=== PATIENT | female | born 1990 | race Caucasian/White ===

== ENCOUNTER 2017-05-24 21:12 | Emergency (ER) | payer OTHER ==
[2017-05-24 23:17] LABS: Basophils # (Auto) 0.1 K/mm3 (0.0-0.1); Basophils % (Auto) 0.3 % (0.0-1.8); Eosinophils # (Auto) 0.1 K/mm3 (0.0-0.4); Eosinophils % (Auto) 0.5 % (0.0-4.3); Hematocrit 41.8 % (30.3-42.9); Hemoglobin 13.4 gm/dl (10.1-14.3); Lymphocytes # (Auto) 2.8 K/mm3 (1.2-5.4); Lymphocytes % (Auto) 14.6 % (13.4-35.0); Mean Corpuscular HGB Conc 32 % (30-34); Mean Corpuscular Hemoglobin 26 pg (28-32); Mean Corpuscular Volume 82 fl (79-97); Monocytes # (Auto) 0.9 K/mm3 (0.0-0.8); Platelet Count 227 K/mm3 (140-440); Red Cell Distribution Width 14.6 % (13.2-15.2)
[2017-05-24 23:37] LABS: Alanine Aminotransferase 17 units/L (7-56); Albumin 3.7 g/dL (3.9-5); BUN/Creatinine Ratio 28; Blood Urea Nitrogen 14 mg/dL (7-17); Calcium 8.9 mg/dL (8.4-10.2); Hemolysis Index 8
[2017-05-24 23:52] LABS: Amorphous Crystals,Urine 1+; Bacteria,Urine 1+ /HPF (Negative); Bilirubin,Urine NEG (Negative); Blood,Urine NEG (Negative); Color,Urine Yellow (Yellow); Mucus,Urine FEW /HPF; Protein,Urine <15 mg/dL mg/dL (Negative); Urobilinogen,Urine < 2.0 mg/dL (<2.0)
[2017-05-25] MEDS ORDERED: ZOFRAN IV ONE (04:45)
[2017-05-25] MEDS ORDERED: NACL 0.9% 1000 ML 1,000 ML IV ONE (04:45)
[2017-05-25] MEDS ORDERED: MORPHINE IV ONE (04:46)
--- NOTE | 2017-05-25 06:22 | Emergency Department Report ---
HPI - HPI HPI: The patient is a 26 yo female presents with hours of abdominal pain. The patient reports right-sided abdominal pain since yesterday, constant since onset , sharp and squeezing in quality, exacerbated with movement. She also reports associated nausea without vomiting. The patient denies fever, chills, night sweats, diarrhea, blood in the stool, dark tarry stool, dysuria, hematuria, flank pain, genital discharge, inability to pass flatus. <SHAYY SUAREZ P - Last Filed: 05/25/17 06:18> <ANTONIO DEL ROSARIO - Last Filed: 05/25/17 10:49> - General Chief Complaint: Abdominal Pain Time Seen by Provider: 05/25/17 04:00 ED Past Medical Hx - Past Medical History Previous Medical History?: No - Social History Smoking Status: Current Every Day Smoker Substance Use Type: None <SHAYY SUAREZ - Last Filed: 05/25/17 06:18> <ANTONIO DEL ROSARIO - Last Filed: 05/25/17 10:49> - Medications Home Medications: Home Medications Medication Instructions Recorded Confirmed Last Taken Type Cephalexin [Keflex] 500 mg PO Q6HR 7 Days capsule 05/25/17 Unknown Rx HYDROcodone/ACETAMINOPHEN [[place] 1 each PO Q6HR PRN #15 tablet 05/25/17 Unknown Rx 5-325 Tablet] Ondansetron [Zofran Odt] 4 mg PO Q8HR PRN #20 tab.rapdis 05/25/17 Unknown Rx ED Review of Systems ROS: Stated complaint: ABD PN Other details as noted in HPI Constitutional: denies: fever ENT: denies: throat or neck pain Respiratory: denies: cough, shortness of breath Cardiovascular: denies: chest pain Endocrine: denies unexplained weight loss or gain Gastrointestinal: reports abdominal pain, nausea Genitourinary: denies: dysuria Musculoskeletal: denies: leg swelling Skin: denies: rash Neurological: denies: headache Hematological/Lymphatic: denies: easy bleeding or easy bruising Psych: denies sadness or hopelessness <SHAYY SUAREZ - Last Filed: 05/25/17 06:18> ROS: Stated complaint: ABD PN Other details as noted in HPI <ANTONIO DEL ROSARIO - Last Filed: 05/25/17 10:49> Physical Exam - Physical Exam Vital Signs: Vital Signs 05/24/17 05/25/17 05/25/17 22:18 02:15 03:40 Temperature 97.6 F 99.0 F Pulse Rate 81 95 H Respiratory 18 16 Rate Blood Pressure 127/78 130/88 O2 Sat by Pulse 100 98 99 Oximetry 05/25/17 03:45 Temperature Pulse Rate Respiratory Rate Blood Pressure 152/92 O2 Sat by Pulse 99 Oximetry Physical Exam: General: well-nourished, well-developed, no acute distress Head: Normocephalic, atraumatic Eyes: normal sclera ENT: Mucous membranes are pink and moist Neck: trachea midline, neck supple, No neck stiffness, no cervical adenopathy Respiratory: Breath sounds equal bilaterally, no wheezing, rales, or rhonchi Cardio: S1 and S2 present, no murmurs, rubs, gallops, capillary refill is brisk Abdomen: Normoactive bowel sounds, soft abdomen, right upper quadrant and right lower quadrant tenderness to palpation present, no rigidity, no guarding or rebound tenderness Musc: No pitting edema Skin: No rash Neuro: no facial drooping, normal speech Psych: Normal affect <SHAYY SUAREZ P - Last Filed: 05/25/17 06:18> - Physical Exam Vital Signs: Vital Signs 05/24/17 05/25/17 05/25/17 22:18 02:15 03:40 Temperature 97.6 F 99.0 F Pulse Rate 81 95 H Respiratory 18 16 Rate Blood Pressure 127/78 130/88 Blood Pressure [Right] O2 Sat by Pulse 100 98 99 Oximetry 05/25/17 05/25/17 05/25/17 03:45 04:01 04:15 Temperature Pulse Rate Respiratory Rate Blood Pressure 152/92 151/87 151/87 Blood Pressure [Right] O2 Sat by Pulse 99 98 99 Oximetry 05/25/17 05/25/17 05/25/17 04:30 04:45 05:00 Temperature Pulse Rate Respiratory Rate Blood Pressure 153/96 153/96 146/95 Blood Pressure [Right] O2 Sat by Pulse 97 99 99 Oximetry 05/25/17 05/25/17 05/25/17 05:15 05:31 05:45 Temperature Pulse Rate Respiratory Rate Blood Pressure 151/87 151/87 151/87 Blood Pressure [Right] O2 Sat by Pulse 99 99 99 Oximetry 05/25/17 05/25/17 05/25/17 06:01 06:15 10:06 Temperature Pulse Rate 87 Respiratory 18 Rate Blood Pressure 138/93 138/93 Blood Pressure 151/82 [Right] O2 Sat by Pulse 97 98 98 Oximetry <ANTONIO DEL ROSARIO C - Last Filed: 05/25/17 10:49> ED Course Vital Signs 05/24/17 05/25/17 05/25/17 22:18 02:15 03:40 Temperature 97.6 F 99.0 F Pulse Rate 81 95 H Respiratory 18 16 Rate Blood Pressure 127/78 130/88 O2 Sat by Pulse 100 98 99 Oximetry 05/25/17 03:45 Temperature Pulse Rate Respiratory Rate Blood Pressure 152/92 O2 Sat by Pulse 99 Oximetry <SHAYY SUAREZ P - Last Filed: 05/25/17 06:18> Vital Signs 05/24/17 05/25/17 05/25/17 22:18 02:15 03:40 Temperature 97.6 F 99.0 F Pulse Rate 81 95 H Respiratory 18 16 Rate Blood Pressure 127/78 130/88 Blood Pressure [Right] O2 Sat by Pulse 100 98 99 Oximetry 05/25/17 05/25/17 05/25/17 03:45 04:01 04:15 Temperature Pulse Rate Respiratory Rate Blood Pressure 152/92 151/87 151/87 Blood Pressure [Right] O2 Sat by Pulse 99 98 99 Oximetry 05/25/17 05/25/17 05/25/17 04:30 04:45 05:00 Temperature Pulse Rate Respiratory Rate Blood Pressure 153/96 153/96 146/95 Blood Pressure [Right] O2 Sat by Pulse 97 99 99 Oximetry 05/25/17 05/25/17 05/25/17 05:15 05:31 05:45 Temperature Pulse Rate Respiratory Rate Blood Pressure 151/87 151/87 151/87 Blood Pressure [Right] O2 Sat by Pulse 99 99 99 Oximetry 05/25/17 05/25/17 05/25/17 06:01 06:15 10:06 Temperature Pulse Rate 87 Respiratory 18 Rate Blood Pressure 138/93 138/93 Blood Pressure 151/82 [Right] O2 Sat by Pulse 97 98 98 Oximetry - Reevaluation(s) Reevaluation #1: 05/25/17 10:35 The patient comfortable and denies any pain, nausea, or vomiting at this time. - Consultations Consultation #1: 05/25/17 10:41 Case discussed with surgeon publication designer Dr. greenfield. Advises Keflex and outpatient follow-up tomorrow <ANTONIO DEL ROSARIO - Last Filed: 05/25/17 10:49> ED Medical Decision Making - Lab Data Result diagrams: 05/24/17 23:03 05/24/17 23:03 - Medical Decision Making The patient was seen and examined by myself. The patient is placed on a heel boom operator and continuous pulse ox. On initial evaluation, the patient was found to be in no distress. Evaluation orders are placed. IV access is established and the patient is given 1 L normal saline fluid bolus and Zofran for nausea, and IV analgesic for pain. Lab results exhibited elevated WBC of 18 , and otherwise were not revealing. CT scan of the abd pending. The patient was signed off to the oncoming morning shift ED physician Dr. Del Rosario, whom agreed to follow up on the patient's pending CT scan and arrange ultimate appropriate disposition. <SHAYY SUAREZ - Last Filed: 05/25/17 06:18> - Lab Data Result diagrams: 05/24/17 23:03 05/24/17 23:03 Lab Results 05/24/17 05/24/17 05/24/17 Range/Units 23:03 23:03 Unknown WBC 18.9 H (4.5-11.0) K/mm3 RBC 5.10 H (3.65-5.03) M/mm3 Hgb 13.4 (10.1-14.3) gm/dl Hct 41.8 (30.3-42.9) % MCV 82 (79-97) fl MCH 26 L (28-32) pg MCHC 32 (30-34) % RDW 14.6 (13.2-15.2) % Plt Count 227 (140-440) K/mm3 Lymph % (Auto) 14.6 (13.4-35.0) % [place] % (Auto) 5.0 (0.0-7.3) % Eos % (Auto) 0.5 (0.0-4.3) % Baso % (Auto) 0.3 (0.0-1.8) % Lymph # 2.8 (1.2-5.4) K/mm3 [place] # 0.9 H (0.0-0.8) K/mm3 Eos # 0.1 (0.0-0.4) K/mm3 Baso # 0.1 (0.0-0.1) K/mm3 Seg Neutrophils % 79.6 H (40.0-70.0) % Seg Neutrophils # 15.0 H (1.8-7.7) K/mm3 Sodium 137 (137-145) mmol/L Potassium 4.2 (3.6-5.0) mmol/L Chloride 98.9 (98-107) mmol/L Carbon Dioxide 25 (22-30) mmol/L Anion Gap 17 mmol/L BUN 14 (7-17) mg/dL Creatinine 0.5 L (0.7-1.2) mg/dL Estimated GFR > 60 ml/min BUN/Creatinine Ratio 28 % Glucose 156 H (65-100) mg/dL Calcium 8.9 (8.4-10.2) mg/dL Total Bilirubin < 0.20 (0.1-1.2) mg/dL AST 14 (5-40) units/L ALT 17 (7-56) units/L Alkaline Phosphatase 113 (35-129) units/L Total Protein 6.6 (6.3-8.2) g/dL Albumin 3.7 L (3.9-5) g/dL Albumin/Globulin Ratio 1.3 % Lipase (13-60) units/L HCG, Qual (Negative) Urine Color Yellow (Yellow) Urine Turbidity Cloudy (Clear) Urine pH 7.0 (5.0-7.0) Ur Specific [place] 1.020 (1.003-1.030) Urine Protein <15 mg/dl (Negative) mg/dL Urine Glucose (UA) Neg (Negative) mg/dL Urine Ketones Neg (Negative) mg/dL Urine Blood Neg (Negative) Urine Nitrite Neg (Negative) Urine Bilirubin Neg (Negative) Urine Urobilinogen < 2.0 (<2.0) mg/dL Ur Leukocyte Esterase Mod (Negative) Urine WBC (Auto) 13.0 H (0.0-6.0) /HPF Urine RBC (Auto) 7.0 (0.0-6.0) /HPF U Epithel Cells (Auto) 4.0 (0-13.0) /HPF Urine Bacteria (Auto) 1+ (Negative) /HPF Amorphous Crystals 1+ Urine Mucus Few /HPF 05/25/17 05/25/17 Range/Units 04:40 04:40 WBC (4.5-11.0) K/mm3 RBC (3.65-5.03) M/mm3 Hgb (10.1-14.3) gm/dl Hct (30.3-42.9) % MCV (79-97) fl MCH (28-32) pg MCHC (30-34) % RDW (13.2-15.2) % Plt Count (140-440) K/mm3 Lymph % (Auto) (13.4-35.0) % [place] % (Auto) (0.0-7.3) % Eos % (Auto) (0.0-4.3) % Baso % (Auto) (0.0-1.8) % Lymph # (1.2-5.4) K/mm3 [place] # (0.0-0.8) K/mm3 Eos # (0.0-0.4) K/mm3 Baso # (0.0-0.1) K/mm3 Seg Neutrophils % (40.0-70.0) % Seg Neutrophils # (1.8-7.7) K/mm3 Sodium (137-145) mmol/L Potassium (3.6-5.0) mmol/L Chloride (98-107) mmol/L Carbon Dioxide (22-30) mmol/L Anion Gap mmol/L BUN (7-17) mg/dL Creatinine (0.7-1.2) mg/dL Estimated GFR ml/min BUN/Creatinine Ratio % Glucose (65-100) mg/dL Calcium (8.4-10.2) mg/dL Total Bilirubin (0.1-1.2) mg/dL AST (5-40) units/L ALT (7-56) units/L Alkaline Phosphatase (35-129) units/L Total Protein (6.3-8.2) g/dL Albumin (3.9-5) g/dL Albumin/Globulin Ratio % Lipase 13 (13-60) units/L HCG, Qual Negative (Negative) Urine Color (Yellow) Urine Turbidity (Clear) Urine pH (5.0-7.0) Ur Specific [place] (1.003-1.030) Urine Protein (Negative) mg/dL Urine Glucose (UA) (Negative) mg/dL Urine Ketones (Negative) mg/dL Urine Blood (Negative) Urine Nitrite (Negative) Urine Bilirubin (Negative) Urine Urobilinogen (<2.0) mg/dL Ur Leukocyte Esterase (Negative) Urine WBC (Auto) (0.0-6.0) /HPF Urine RBC (Auto) (0.0-6.0) /HPF U Epithel Cells (Auto) (0-13.0) /HPF Urine Bacteria (Auto) (Negative) /HPF Amorphous Crystals Urine Mucus /HPF - Radiology Data Radiology results: report reviewed By radiologist CT abdomen and pelvis IV contrast: Concerning for early acute cholecystitis correlate with patient's clinical symptoms Ultrasound abdomen: Cholelithiasis. Gallbladder wall thickening measuring 3.8 mm. CBD measures 4.3 mm. 1.2 cm stone in the gallbladder neck - Medical Decision Making Ultrasound confirms findings of cholelithiasis with mild wall thickening but no pericholecystic fluid. Patient also lacks fever does have leukocytosis. No signs of sepsis, intractable pain, vomiting, or elevated LFTs. Case has been discussed with publication designer surgeon Dr. Greenfield. Advises Keflex 500 every 6 hours and follow-up in the office tomorrow at 12:15 for reevaluation. <ANTONIO DEL ROSARIO C - Last Filed: 05/25/17 10:49> Critical care attestation.: If time is entered above; I have spent that time in minutes in the direct care of this critically ill patient, excluding procedure time. <SHAYY SUAREZ P - Last Filed: 05/25/17 06:18> Critical care attestation.: If time is entered above; I have spent that time in minutes in the direct care of this critically ill patient, excluding procedure time. <ANTONIO DEL ROSARIO - Last Filed: 05/25/17 10:49> ED Disposition Is pt being admited?: Yes Does the pt Need Aspirin: Yes Time of Disposition: 06:21 <SHAYY SUAREZ - Last Filed: 05/25/17 06:18> Is pt being admited?: No Time of Disposition: 10:43 <DEL ROSARIOJOSEPHINEMaximus Beckman - Last Filed: 05/25/17 10:49> Clinical Impression: Cholelithiasis, Urine WBC increased, Leukocytosis Disposition: DC-01 TO HOME OR SELFCARE Condition: Stable Instructions: Biliary Colic (ED), Urinary Tract Infection in Women (ED) Additional Instructions: Follow-up with the surgeon Dr Greenfield tomorrow at 12:15 PM. Take the medication as prescribed. Return if symptoms worsen as indicated by her discharge instructions. Stanley un seguimiento con el cirujano Dr. Greenfield maana a las 12:15 PM. Rhodes la medicacin segn lo prescrito. Regrese si los sntomas empeoran segn lo indicado por sarath instrucciones de serena. Prescriptions: Cephalexin [Keflex] 500 mg PO Q6HR 7 Days capsule HYDROcodone/ACETAMINOPHEN [[place] 5-325 Tablet] 1 each PO Q6HR PRN #15 tablet PRN Reason: Pain Ondansetron [Zofran Odt] 4 mg PO Q8HR PRN #20 tab.rapdis PRN Reason: Nausea And Vomiting Referrals: KUMAR GREENFIELD MD [Staff Physician] - 05/26/17 12:15 pm
--- NOTE | 2017-05-25 07:43 | Cat Scan Report ---
CT ABDOMEN PELVIS WITH CONTRAST: HISTORY: abdominal pain. COMPARISON: none. TECHNIQUE: Helical CT in 1.25mm intervals following IV contrast. Sagittal and coronal reconstructions. FINDINGS: Lung bases: Normal. Liver: Normal. Biliary system: The gallbladder is borderline dilated measuring 10.5 cm in length and 4.1 cm in diameter. Mild gallbladder wall edema is identified. There are a few tiny stones in the gallbladder fundus and a larger stone near the gallbladder neck measuring 1.2 cm. The common bile duct and intrahepatic biliary ducts are normal. Pancreas: Normal. Spleen: Normal. Kidneys/ureters/bladder: Normal. Adrenal glands: Normal. Aorta: Normal. Intestines: Normal. Appendix: Normal. Pelvic viscera: Normal. An IUD is in position in the endometrial cavity. Ascites: None. Adenopathy: None. Musculoskeletal: Normal. IMPRESSION: Findings concerning for early acute cholecystitis. Please correlate with the patient's clinical presentation and laboratory values.
--- NOTE | 2017-05-25 10:05 | Ultrasound Report ---
ULTRASOUND ABDOMEN COMPLETE: TECHNIQUE: Transabdominal ultrasound with color Doppler interrogation. HISTORY: Cholecystitis, abdominal pain. COMPARISON: CT abdomen pelvis with contrast performed the same day. FINDINGS: LIVER: Normal. BILIARY SYSTEM: Ultrasound demonstrates a 1.2 cm stone in the gallbladder neck. There is mild gallbladder wall thickening measuring 3.8 mm. The CBD measures 4.3 mm. PANCREAS: Normal. SPLEEN: Normal. KIDNEYS: Normal. AORTA/IVC: Normal. ASCITES: None. IMPRESSION: Cholelithiasis. Mild gallbladder wall thickening.
[2017-05-25 10:06] VITALS: BP 151/82
[2017-05-25] MEDS ORDERED: KEFLEX PO ONE (10:42)
== END 2017-05-25 11:20 | disposition home or self-care (01) ==
LOC: ED 21:12
DX: K80.20 Calculus of gallbladder without cholecystitis without obstruction (principal); D72.829 Elevated white blood cell count, unspecified; F17.200 Nicotine dependence, unspecified, uncomplicated
CPT/HCPCS: 36415; 74177; 76700; 80053; 81001; 83690; 84703; 85025; 96361; 96374; 96375; 99284; J2270; J2405; J7030; Q9967; 93005; 93010

== ENCOUNTER 2020-04-01 09:06 | Emergency (ER) | payer SELFPAY ==
--- NOTE | 2020-04-01 09:16 | Event Note ---
ED Screening Note ED Screening Note: 29-year-old female that presents with chest pain, SOB, and fatigue. Had a negative COVID testing last week. Was sent by PCP. This initial assessment/diagnostic orders/clinical plan/treatment(s) is/are subject to change based on patients health status, clinical progression and re- assessment by fellow clinical providers in the ED. Further treatment and workup at subsequent clinical providers discretion. Patient/guardian urged not to elope from the ED as their condition may be serious if not clinically assessed and managed. Initial orders include: cardiac workup
[2020-04-01 10:03] LABS: Basophils % (Auto) 0.2 % (0.0-1.8); Eosinophils # (Auto) 0.2 K/mm3 (0.0-0.4); Eosinophils % (Auto) 1.7 % (0.0-4.3); Hematocrit 41.8 % (30.3-42.9); Lymphocytes # (Auto) 2.5 K/mm3 (1.2-5.4); Lymphocytes % (Auto) 23.4 % (13.4-35.0); Mean Corpuscular HGB Conc 34 % (30-34); Mean Corpuscular Volume 83 fl (79-97); Monocytes # (Auto) 0.7 K/mm3 (0.0-0.8); Monocytes % (Auto) 6.3 % (0.0-7.3); Platelet Count 190 K/mm3 (140-440); Red Blood Count 5.05 M/mm3 (3.65-5.03)
[2020-04-01 10:26] LABS: INR 0.99 (0.87-1.13); Partial Thromboplastin Time 27.7 Sec. (24.2-36.6)
--- NOTE | 2020-04-01 10:38 | XRay Report ---
CHEST 2 VIEWS, 04/01/2020 9:30 AM INDICATION: Chest pain COMPARISON: None FINDINGS: Support devices: None. Heart: The cardiac silhouette is normal in size. Lungs/pleura: The lungs are clear of focal airspace disease or significant pleural effusion. Additional findings: No significant acute abnormality. IMPRESSION: 1. No evidence of acute cardiopulmonary process. Signer Name: Vi Sanders MD Signed: 04/01/2020 10:34 AM Workstation Name: [id number]
--- NOTE | 2020-04-01 10:53 | Emergency Department Report ---
- General Chief Complaint: Chest Pain Stated Complaint: CP/SOB/FATIGUE Time Seen by Provider: 04/01/20 09:14 Source: patient Mode of arrival: Ambulatory Limitations: Language Barrier - History of Present Illness Initial Comments: Patient is a 29-year-old female who is had a cough for approximately 10 days. Patient states that 2 days ago she did get results of the COVID-19 test which was taken 2 days prior to that and was sent given a negative result. Patient has had mild body aches and a nonproductive cough approximately a week. She is a smoker. She denies any fevers nausea vomiting diarrhea. - Related Data Previous Rx's Medication Instructions Recorded Last Taken Type HYDROcodone/ACETAMINOPHEN [[place] 1 each PO Q6HR PRN #15 tablet 05/25/17 Unknown Rx 5-325 Tablet] Ondansetron [Zofran Odt] 4 mg PO Q8HR PRN #20 tab.rapdis 05/25/17 Unknown Rx cephALEXin [Keflex] 500 mg PO Q6HR 7 Days capsule 05/25/17 Unknown Rx Azithromycin [Zithromax Z-CRIS] 250 mg PO DAILY #6 tablet 04/01/20 Unknown Rx Benzonatate [Tessalon Perles] 100 mg PO Q8HR #10 capsule 04/01/20 Unknown Rx predniSONE [Deltasone] 20 mg PO QDAY #5 tab 04/01/20 Unknown Rx Allergies Allergy/AdvReac Type Severity Reaction Status Date / Time No Known Allergies Allergy Verified 04/01/20 09:12 ED Review of Systems ROS: Stated complaint: CP/SOB/FATIGUE Other details as noted in HPI Comment: All other systems reviewed and negative ED Past Medical Hx - Past Medical History Previous Medical History?: No - Surgical History Past Surgical History?: No - Social History Smoking Status: Current Some Day Smoker Substance Use Type: None - Medications Home Medications: Home Medications Medication Instructions Recorded Confirmed Last Taken Type HYDROcodone/ACETAMINOPHEN [[place] 1 each PO Q6HR PRN #15 tablet 05/25/17 Unknown Rx 5-325 Tablet] Ondansetron [Zofran Odt] 4 mg PO Q8HR PRN #20 tab.rapdis 05/25/17 Unknown Rx cephALEXin [Keflex] 500 mg PO Q6HR 7 Days capsule 05/25/17 Unknown Rx Azithromycin [Zithromax Z-CRIS] 250 mg PO DAILY #6 tablet 04/01/20 Unknown Rx Benzonatate [Tessalon Perles] 100 mg PO Q8HR #10 capsule 04/01/20 Unknown Rx predniSONE [Deltasone] 20 mg PO QDAY #5 tab 04/01/20 Unknown Rx ED Physical Exam - General Limitations: Language Barrier General appearance: alert, in no apparent distress - Head Head exam: Present: atraumatic, normocephalic - Eye Eye exam: Present: normal appearance, PERRL, EOMI - ENT ENT exam: Present: normal orophraynx, mucous membranes moist - Neck Neck exam: Present: normal inspection - Respiratory Respiratory exam: Present: normal lung sounds bilaterally. Absent: respiratory distress, wheezes, rales, rhonchi - Cardiovascular Cardiovascular Exam: Present: regular rate, normal rhythm, normal heart sounds. Absent: systolic murmur, diastolic murmur, rubs, gallop - GI/Abdominal GI/Abdominal exam: Present: soft, normal bowel sounds. Absent: distended, tenderness, guarding, rebound - Extremities Exam Extremities exam: Present: normal inspection - Back Exam Back exam: Present: normal inspection - Neurological Exam Neurological exam: Present: alert, oriented X3 - Psychiatric Psychiatric exam: Present: normal affect, normal mood - Skin Skin exam: Present: warm, dry, intact, normal color. Absent: rash ED Course Vital Signs 04/01/20 09:16 Temperature 98.2 F Pulse Rate 102 H Respiratory 20 Rate Blood Pressure 150/92 O2 Sat by Pulse 99 Oximetry ED Medical Decision Making - Lab Data Result diagrams: 04/01/20 09:23 Lab Results 04/01/20 04/01/20 04/01/20 Range/Units 09:23 09:23 09:23 WBC 10.7 (4.5-11.0) K/mm3 RBC 5.05 H (3.65-5.03) M/mm3 Hgb 14.0 (10.1-14.3) gm/dl Hct 41.8 (30.3-42.9) % MCV 83 (79-97) fl MCH 28 (28-32) pg MCHC 34 (30-34) % RDW 14.0 (13.2-15.2) % Plt Count 190 (140-440) K/mm3 Lymph % (Auto) 23.4 (13.4-35.0) % [place] % (Auto) 6.3 (0.0-7.3) % Eos % (Auto) 1.7 (0.0-4.3) % Baso % (Auto) 0.2 (0.0-1.8) % Lymph # (Auto) 2.5 (1.2-5.4) K/mm3 [place] # (Auto) 0.7 (0.0-0.8) K/mm3 Eos # (Auto) 0.2 (0.0-0.4) K/mm3 Baso # (Auto) 0.0 (0.0-0.1) K/mm3 Seg Neutrophils % 68.4 (40.0-70.0) % Seg Neutrophils # 7.3 (1.8-7.7) K/mm3 PT 13.0 (12.2-14.9) Sec. INR 0.99 (0.87-1.13) APTT 27.7 (24.2-36.6) Sec. HCG, Qual Negative (Negative) - EKG Data -: EKG Interpreted by Me EKG shows normal: sinus rhythm, axis, intervals, QRS complexes, ST-T waves Rate: normal - EKG Data Interpretation: normal EKG - Radiology Data Chest x-ray is within normal limits - Medical Decision Making Patient is a 29-year-old female who is presenting with 10 days of cough. She is a smoker. Patient had a negative COVID-19 testing but likely will need to have 1 more confirmatory test to rule out COVID-19 fully. Patient is a smoker and likely has a smokers bronchitis of unknown etiology. At this point the patient has been ill for approximately 10 days and because of her smoking do think it is warranted to start the patient on short course of antibiotics. Patient also started on steroids for inflammation and medication for symptomatic relief and should be discharged home. Critical care attestation.: If time is entered above; I have spent that time in minutes in the direct care of this critically ill patient, excluding procedure time. ED Disposition Clinical Impression: Acute bronchitis, Smoking Disposition: DC-01 TO HOME OR SELFCARE Is pt being admited?: No Does the pt Need Aspirin: No Condition: Stable Instructions: Acute Bronchitis (ED), Acute Bronchitis, Adult, [id number] Referrals: ANNE BOO MD [Staff Physician] - 3-5 Days Time of Disposition: 10:52 Print Language: [id number]
[2020-04-01 11:32] VITALS: BP 136/68
== END 2020-04-01 11:32 | disposition home or self-care (01) ==
LOC: ED 09:06
DX: J20.9 Acute bronchitis, unspecified (principal); F17.200 Nicotine dependence, unspecified, uncomplicated; Z79.899 Other long term (current) drug therapy
CPT/HCPCS: 36415; 71046; 84703; 85025; 85610; 85730; 93005